=== PATIENT | female | born 1990 | race African-American/Black ===

== ENCOUNTER 2020-06-21 17:09 | Inpatient (IN) | payer MEDICAID ==
--- NOTE | 2020-06-21 20:31 | PCM.LDHP ---
L&D History of Present Illness - General Date of Service: 06/21/20 Admit Problem/Dx: Admission Diagnosis/Problem Admission Diagnosis/Problem 06/21/20 20:25 Yudelka is a 30 yo at 39+0 weeks gestation (PAPO 06/28/2020) that presents to L&D today for elective IOL. Patient seen in office 06/20/2020, RBAs of IOL including cytotec administration discussed in office, consents signed, verified vertex in office via TAUS and SVE. Reports adequate movement. Denies diana vaginal bleeding, LOF at this time. O pos, Ab screen neg, RI, GBS neg. EFW via Leopolds 6-7 lbs. H/O anemia and GERD, course otherwise unr emarkable. NKDA. Medications: PNV, omeprazole PRN. Patient has no other complaints or concerns at this time. 06/21/20 20:43 Source of Information: Patient History Limitations: Reports: No Limitations - History of Present Illness Improves with: Reports: None Worsens with: Reports: None Associated Symptoms: Reports: N - Related Data Allergies/Adverse Reactions: Allergies Allergy/AdvReac Type Severity Reaction Status Date / Time nalbuphine [From Nubain] Allergy Itching Verified 03/14/20 18:15 Home Medications: Home Meds Omeprazole 20 mg PO DAILY 03/14/20 [History] Pnv No.95/Ferrous Fum/Folic AC [ Tablet] 1 tab PO DAILY 03/14/20 [History] Past Medical History HEENT History: Reports: None Cardiovascular History: Reports: None Respiratory History: Reports: None Gastrointestinal History: Reports: GERD Genitourinary History: Reports: None 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) : 2 Para: 1 LMP (Approximate): Other OB/BYN History: 06/2009 Musculoskeletal History: Reports: None Neurological History: Reports: None Psychiatric History: Reports: None Endocrine/Metabolic History: Reports: None Hematologic History: Reports: None Immunologic History: Reports: None Oncologic (Cancer) History: Reports: None Dermatologic History: Reports: Condyloma - Infectious Disease History Infectious Disease History: Reports: None Social & Family History - Family History Family Medical History: No Pertinent Family History - Tobacco Use Tobacco Use Status *Q: Never Tobacco User - Caffeine Use Caffeine Use: Reports: None - Alcohol Use Alcohol Use History: No - Recreational Drug Use Recreational Drug Use: No - Sexual History Sexual History: Reports: None H&P Review of Systems - Review of Systems: Review Of Systems: Comprehensive ROS is negative, except as noted in HPI. General: Reports: No Symptoms HEENT: Reports: No Symptoms Pulmonary: Reports: No Symptoms Cardiovascular: Reports: No Symptoms Gastrointestinal: Reports: No Symptoms Genitourinary: Reports: No Symptoms Musculoskeletal: Reports: No Symptoms Skin: Reports: No Symptoms Psychiatric: Reports: No Symptoms Neurological: Reports: No Symptoms Hematologic/Lymphatic: Reports: No Symptoms Immunologic: Reports: No Symptoms L&D Exam - Exam Exam: See Below - Vital Signs Vital Signs: VSS, afebrile. See flowsheet - OB Specific Fundal Height In cm: 38 Contraction Duration (sec): 40-90 Contraction Frequency (min): occasional Contraction Intensity: Mild Movement: Active Heart Tones: Present Heart Tones per Min: 135 Heart Rate (FHR) Variability: Moderate (6-25 bmp) Presentation: Vertex (via handheld TAUS) - Lawrence Score Lawrence Score Cervix Position: Posterior Lawrence Score Consistency: Soft Lawrence Score Effacement: 31-50% Lawrence Score Dilation: 1-2 cm Lawrence Score 's Station: -3 Lawrence Score Total: 4 - Exam General: Alert, Oriented, Cooperative HEENT: Hearing Intact, Mucosa Moist & [place], Nares Patent, PERRLA Neck: Supple, Trachea Midline Lungs: Clear to Auscultation, Normal Respiratory Effort Cardiovascular: Regular Rate, Regular Rhythm GI/Abdominal Exam: Normal Bowel Sounds, Soft, Non-Tender, No Organomegaly, No Distention Rectal Exam: Deferred Genitourinary: Normal external exam, Normal bimanual exam, Enlarged uterus (Gravid uterus) Back Exam: Normal Inspection, Full Range of Motion Extremities: Normal Inspection, Normal Range of Motion, Non-Tender, No Pedal Edema, Normal Capillary Refill Skin: Warm, Dry, Intact Neurological: Cranial Nerves Intact, Reflexes Equal Bilateral Psychiatric: Alert, Normal Affect, Normal Mood - Problem List (1) Encounter for elective induction of labor SNOMED Code(s): 178928163 ICD Code: Z34.90 - ENCNTR FOR SUPRVSN OF NORMAL , UNSP, UNSP TRIMESTER Status: Acute Priority: High Current Visit: Yes (2) 39 weeks gestation of SNOMED Code(s): 82261165 ICD Code: Z3A.39 - 39 WEEKS GESTATION OF Status: Acute Priority: High Current Visit: Yes Problem List Initiated/Reviewed/Updated: Yes Assessment/Plan Comment:: Admit for observation for elective IOL in anticipation of of term viable . FHR Cat I. Spontaneous irregular contractions noted. RBAs/SEs of cytotec IOL discussed, patient confirms she desires elective IOL, reassess cervical dilation per orders. May ambulate or hydrotherapy once reactive NST is completed, reassess NSTs per orders. May receive epidural if desired >/= 4-5 cm[address] See new orders. Dr. Hussein notified and agreeable with POC.
[2020-06-21] MEDS ORDERED: Misoprostol 200 MCG Tab PO PRN (20:48)
[2020-06-21] MEDS ORDERED: Sodium Chloride 0.9% 10 ML SDV IV PRN (20:48)
[2020-06-21] MEDS ORDERED: Nalbuphine 10 MG/1 ML Vial IVPUSH PRN (20:48)
[2020-06-21] MEDS ORDERED: Lidocaine 1% 50 ML MDV INJECT PRN (20:48)
[2020-06-21] MEDS ORDERED: Water For Irrigation,Sterile 1,000 ML Container IRR PRN (20:48)
[2020-06-21] MEDS ORDERED: Methylergonovine 0.2 MG/1 ML Amp IM PRN (20:48)
[2020-06-21] MEDS ORDERED: Tranexamic Acid 1,000 MG in Sodium Chloride 0.9% 100 ML IV PRN (20:48)
[2020-06-21] MEDS ORDERED: Carboprost Tromethamine 250 MCG/1 ML Amp IM PRN (20:48)
[2020-06-21] MEDS ORDERED: Sodium Chloride 0.9% 10 ML Syringe FLUSH PRN (20:48)
[2020-06-21] MEDS ORDERED: Sodium Chloride 0.9% 2.5 ML Syringe FLUSH PRN (20:48)
[2020-06-21] MEDS ORDERED: Oxytocin/0.9 % Sodium Chloride 30 UNIT/500 ML BAG IV SCH ×2 (21:00→22:30)
[2020-06-21] MEDS ORDERED: Terbutaline 1 MG/ML SDV SUBCUT PRN (22:25)
[2020-06-21] MEDS: Misoprostol 25 MCG (1/4 of 100 MCG) Tab VAG PRN (23:16)
[2020-06-21] MEDS: Misoprostol 25 MCG (1/4 of 100 MCG) Tab PO PRN (23:17)
[2020-06-22] MEDS: Lactated Ringers 1,000 ML IV SCH ×3 (00:50→08:10)
[2020-06-22] MEDS: Misoprostol 25 MCG (1/4 of 100 MCG) Tab VAG PRN (07:20)
[2020-06-22] MEDS: Misoprostol 25 MCG (1/4 of 100 MCG) Tab PO PRN (07:23)
[2020-06-22] MEDS ORDERED: Butorphanol 1 MG/ML SDV IVPUSH PRN (12:19)
[2020-06-22] MEDS ORDERED: diphenhydrAMINE 50 MG/ML SDV IVPUSH ONE (13:02)
[2020-06-22] MEDS ORDERED: diphenhydrAMINE 50 MG/ML SDV ONE (13:04)
--- NOTE | 2020-06-22 14:42 | PCM.PNLD ---
Labor Progress Note - VS & Meds Vital Signs: VSS, afebrile. See flowsheet. Active Medications: Current Medications Butorphanol Tartrate (Stadol) 1 mg IVPUSH Q1H PRN PRN Reason: Pain Last Admin: 06/22/20 12:31 Dose: 1 mg Documented by: Carboprost Tromethamine (Hemabate Ds) 250 mcg IM ASDIRECTED PRN PRN Reason: Post Hemorrhage Lactated Ringer's (Ringers, Lactated) 1,000 mls @ 150 mls/hr IV ASDIRECTED ELLYN Last Infusion: 06/22/20 12:30 Dose: 150 mls/hr Documented by: Oxytocin/Sodium Chloride (Oxytocin 30 Unit/500 Ml-Ns) 30 unit in 500 mls @ 999 mls/hr IV TITRATE ELLYN Tranexamic Acid 1,000 mg/ (Sodium Chloride) 110 mls @ 660 mls/hr IV ONETIME PRN PRN Reason: Bleeding Oxytocin/Sodium Chloride (Oxytocin 30 Unit/500 Ml-Ns) 30 unit in 500 mls @ 2 mls/hr IV TITRATE ELLYN; Protocol Lidocaine HCl (Xylocaine 1%) 50 ml INJECT ONETIME PRN PRN Reason: Laceration repair Methylergonovine Maleate (Methergine) 0.2 mg IM ASDIRECTED PRN PRN Reason: Post Hemorrhage Misoprostol (Cytotec) 200 mcg PO ONETIME PRN PRN Reason: Post Hemorrhage Misoprostol (Cytotec) 25 mcg VAG Q4H PRN PRN Reason: Cervical Ripening Last Admin: 06/22/20 07:20 Dose: 25 mcg Documented by: Misoprostol (Cytotec) 25 mcg PO Q4H PRN PRN Reason: Cervical Ripening Last Admin: 06/22/20 07:23 Dose: 25 mcg Documented by: Sodium Chloride (Saline Flush) 10 ml FLUSH ASDIRECTED PRN PRN Reason: Keep Vein Open Sodium Chloride (Saline Flush) 2.5 ml FLUSH ASDIRECTED PRN PRN Reason: Keep Vein Open Sodium Chloride (Normal Saline) 10 ml IV ASDIRECTED PRN PRN Reason: IV Use Sterile Water (Sterile Water For Irrigation) 1,000 ml IRR ASDIRECTED PRN PRN Reason: delivery Terbutaline Sulfate (Brethine) 0.25 mg SUBCUT ASDIRECTED PRN PRN Reason: Tacysystole Discontinued Medications Diphenhydramine HCl (Benadryl) 25 mg IVPUSH ONETIME ONE Stop: 06/22/20 13:03 Last Admin: 06/22/20 13:06 Dose: 25 mg Documented by: Diphenhydramine HCl (Benadryl) Confirm Administered Dose 50 mg .ROUTE .STK-MED ONE Stop: 06/22/20 13:05 Last Admin: 06/22/20 13:11 Dose: Not Given Documented by: Nalbuphine HCl (Nubain) 10 mg IVPUSH Q1H PRN PRN Reason: Pain (severe 7-10) - Uterine Contractions Uterine Monitoring Mode: External [place] Contraction Frequency (min): 1-3 Contraction Duration (sec): 60-110 Contraction Intensity: Strong Uterine Resting Tone: Soft - Monitoring Monitor Mode: External Ultrasound Heart Rate (FHR) Baseline: 130 Heart Rate (FHR) Variability: Moderate (6-25 bmp) Accelerations: Present, 15x15 Decelerations: None Strip Review: Category I - Vaginal Exam Dilation (cm): 6 Effacement (Percent): 90 Station: -1 Cervical Position: Midposition Sterile Vaginal Exam Performed By: Alethea Schmidt - Labor Progress (Free Text) Labor Progress: Yudelka is a 30 yo at 39+0 weeks gestation (PAPO 06/28/2020) that presents to L&D today for elective IOL. Cytotec cervical ripening completed, Dose #2 administered ~0720; spontaneous onset of painful contractions with cervical change thereafter. IV stadol given with benedryl for pain, declines epidural at this time. Reports adequate movement. Denies diana vaginal bleeding, LOF . AROM completed, moderate clear non-odorous fluid. SVE /-1, vertex. NST Cat I. Continue with elective IOL POC in anticipation of of viable, term .
[2020-06-22] MEDS ORDERED: fentaNYL 100 MCG/2 ML SDV ONE (15:18)
[2020-06-22] MEDS ORDERED: Ropivacaine HCl/PF 100 ML ONE (15:18)
--- NOTE | 2020-06-22 15:39 | PCM.PREANE ---
Preanesthetic Assessment - Anesthesia/Transfusion/Family Hx Anesthesia History: No Prior Anesthesia Family History of Anesthesia Reaction: No Transfusion History: No Prior Transfusion(s) Type of Transfusion Reactions: Reports: Unknown - Physical Assessment NPO Status Date: 06/22/20 NPO Status Time: 11:00 Height: 1.68 m Weight: 79.379 kg - Lab Values: Laboratory Last Values WBC 12.48 K/uL (4.0-11.0) H 06/21/20 21:55 RBC 3.65 M/uL (4.30-5.90) L 06/21/20 21:55 Hgb 10.2 g/dL (12.0-16.0) L 06/21/20 21:55 Hct 32.3 % (36.0-46.0) L 06/21/20 21:55 MCV 88.5 fL (80.0-98.0) 06/21/20 21:55 MCH 27.9 pg (27.0-32.0) 06/21/20 21:55 MCHC 31.6 g/dL (31.0-37.0) 06/21/20 21:55 RDW Std Deviation 49.8 fl (28.0-62.0) 06/21/20 21:55 RDW Coeff of Monty 16 % (11.0-15.0) H 06/21/20 21:55 Plt Count 267 K/uL (150-400) 06/21/20 21:55 MPV 10.00 fL (7.40-12.00) 06/21/20 21:55 Nucleated RBC % 0.0 /100WBC 06/21/20 21:55 Nucleated RBCs # 0 K/uL 06/21/20 21:55 SARS-CoV-2 RNA (HEIDE) NEGATIVE (NEGATIVE) 06/21/20 20:23 Blood Type O POSITIVE 06/21/20 21:55 Antibody Screen NEGATIVE 06/21/20 21:55 - Allergies Allergies/Adverse Reactions: Allergies Allergy/AdvReac Type Severity Reaction Status Date / Time nalbuphine [From Nubain] Allergy Itching Verified 03/14/20 18:15 - Acknowledgements Anesthesia Type Planned: Epidural Pt an Appropriate Candidate for the Planned Anesthesia: Yes Alternatives and Risks of Anesthesia Discussed w Pt/Guardian: Yes Pt/Guardian Understands and Agrees with Anesthesia Plan: Yes PreAnesthesia Questionnaire HEENT History: Reports: None Cardiovascular History: Reports: None Respiratory History: Reports: None Gastrointestinal History: Reports: GERD Genitourinary History: Reports: None 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: , 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) Other OB/BYN History: 06/2009 Musculoskeletal History: Reports: None Neurological History: Reports: None Psychiatric History: Reports: None Endocrine/Metabolic History: Reports: None Hematologic History: Reports: None Immunologic History: Reports: None Oncologic (Cancer) History: Reports: None Dermatologic History: Reports: Condyloma - Infectious Disease History Infectious Disease History: Reports: None - Past Surgical History HEENT Surgical History: Reports: None Cardiovascular Surgical History: Reports: None GI Surgical History: Reports: None Female Surgical History: Reports: None Endocrine Surgical History: Reports: None Neurological Surgical History: Reports: None Musculoskeletal Surgical History: Reports: None Oncologic Surgical History: Reports: None Dermatological Surgical History: Reports: None - SUBSTANCE USE Tobacco Use Status *Q: Never Tobacco User Second Hand Smoke Exposure: No Recreational Drug Use History: No - HOME MEDS Home Medications: Home Meds Omeprazole 20 mg PO DAILY 03/14/20 [History] Pnv No.95/Ferrous Fum/Folic AC [ Tablet] 1 tab PO DAILY 03/14/20 [History] - CURRENT (IN HOUSE) MEDS Current Meds: Current Medications Butorphanol Tartrate (Stadol) 1 mg IVPUSH Q1H PRN PRN Reason: Pain Last Admin: 06/22/20 12:31 Dose: 1 mg Documented by: Carboprost Tromethamine (Hemabate Ds) 250 mcg IM ASDIRECTED PRN PRN Reason: Post Hemorrhage Lactated Ringer's (Ringers, Lactated) 1,000 mls @ 150 mls/hr IV ASDIRECTED ELLYN Last Infusion: 06/22/20 12:30 Dose: 150 mls/hr Documented by: Oxytocin/Sodium Chloride (Oxytocin 30 Unit/500 Ml-Ns) 30 unit in 500 mls @ 999 mls/hr IV TITRATE ELLYN Tranexamic Acid 1,000 mg/ (Sodium Chloride) 110 mls @ 660 mls/hr IV ONETIME PRN PRN Reason: Bleeding Oxytocin/Sodium Chloride (Oxytocin 30 Unit/500 Ml-Ns) 30 unit in 500 mls @ 2 mls/hr IV TITRATE ELLYN; Protocol Lidocaine HCl (Xylocaine 1%) 50 ml INJECT ONETIME PRN PRN Reason: Laceration repair Methylergonovine Maleate (Methergine) 0.2 mg IM ASDIRECTED PRN PRN Reason: Post Hemorrhage Misoprostol (Cytotec) 200 mcg PO ONETIME PRN PRN Reason: Post Hemorrhage Misoprostol (Cytotec) 25 mcg VAG Q4H PRN PRN Reason: Cervical Ripening Last Admin: 06/22/20 07:20 Dose: 25 mcg Documented by: Misoprostol (Cytotec) 25 mcg PO Q4H PRN PRN Reason: Cervical Ripening Last Admin: 06/22/20 07:23 Dose: 25 mcg Documented by: Sodium Chloride (Saline Flush) 10 ml FLUSH ASDIRECTED PRN PRN Reason: Keep Vein Open Sodium Chloride (Saline Flush) 2.5 ml FLUSH ASDIRECTED PRN PRN Reason: Keep Vein Open Sodium Chloride (Normal Saline) 10 ml IV ASDIRECTED PRN PRN Reason: IV Use Sterile Water (Sterile Water For Irrigation) 1,000 ml IRR ASDIRECTED PRN PRN Reason: delivery Terbutaline Sulfate (Brethine) 0.25 mg SUBCUT ASDIRECTED PRN PRN Reason: Tacysystole Discontinued Medications Diphenhydramine HCl (Benadryl) 25 mg IVPUSH ONETIME ONE Stop: 06/22/20 13:03 Last Admin: 06/22/20 13:06 Dose: 25 mg Documented by: Diphenhydramine HCl (Benadryl) Confirm Administered Dose 50 mg .ROUTE .STK-MED ONE Stop: 06/22/20 13:05 Last Admin: 06/22/20 13:11 Dose: Not Given Documented by: Fentanyl (Sublimaze) Confirm Administered Dose 100 mcg .ROUTE .STK-MED ONE Stop: 06/22/20 15:19 Ropivacaine (Naropin 0.2%) Confirm Administered Dose 100 mls @ as directed .ROUTE .STK-MED ONE Stop: 06/22/20 15:19 Nalbuphine HCl (Nubain) 10 mg IVPUSH Q1H PRN PRN Reason: Pain (severe 7-10)
--- NOTE | 2020-06-22 15:42 | PCM.PRNOTE ---
- Free Text/Narrative Note: Anes Note Patietn requests epidural for L&D. Sitting position, level L3-L4 mildline approach. Sterile technique. Chloraprep scrub to lumbar area. Sterile fenestrated drape applied. Epidural spaces easily ahcieved single attempt with ease using DENISE technique. DENISE at 3 cm. Cath threaded 5 cm wtih ease. Cath secured at skin using sterile clear adhesive dressing. Test 1525 3 cc 1.5% lido with epi negative. 1538 Load 10 cc 0.2% ropiviciane with 1 mcg cc fentayl in slow divided doses. 1544 Pumps started with 90 cc same solution. Rate is 8 cc hr with 6 cc q 20 min prn bolus. Hai well. Time with patient [id number] Raz Lima CRNA
--- NOTE | 2020-06-22 16:52 | PCM.DEL ---
L & D Note - General Info Date of Service: 06/22/20 Mother's Due Date: 06/28/20 - Delivery Note Labor: Spontaneous, Augmented by ARM, Augmented by Oxytocin Cervical Ripening Method: Misoprostil Delivery Outcome: Livebirth Delivery Method: Spontaneous Vaginal Delivery-Single Infant Delivery Mode: Spontaneous Presentation: Vertex (OA) Nuchal Cord: Present (OA with body nuchal left shoulder, reduced after .) Anesthesia Type: Epidural Amniotic Fluid Description: Clear Episiotomy Type: None Laceration: None Placenta: Intact, Spontaneous Cord: 3 Vessels Estimated Blood Loss: 500 : Suctioned, Stimulated, Warmed, [place] Used Score 1 min: 6 Score 5 min: 9 Second Stage Interventions: Reports: Encouragement Given, Pushing Effectively, Pushing, Stirrups/Leg Supports Delivery Comments (Free Text/Narrative):: Yudelka is a 30 yo S/P of term, viable NBF at 39+1 weeks gestation (PAPO 06/28/2020) following elective IOL. O pos, Ab screen neg, RI, GBS neg. RT called to bedside d/t recurrent decelerations prior to . Pain controlled well with BLE epidural analgesia, pushing effectively with encouragement. head delivered OA with body closely following with next push, body nuchal over left shoulder, reduced upon delivery. NBF placed to maternal abdomen, warmed, dried, stimulated, bulb suctioned. Weak cries noted, umbilical cord clamped x2 ~35-40 sec, cut by FOB. NBF brought to warmer for assessment. Pitocin bolus commenced for active third stage management. Placenta delivered ~8 minutes S/P NBF, intact with trailing membranes, [place], 3VC. Perineum intact. Uterus firm, U-2. Scant to small rubra lochia, no clots. Apgars 6/9. weight 7 lb 14 oz. EBL ~500. Patient resting comfortably in bed, VSS and afebrile. Induction Criteria - Lawrence Score Lawrence Score Dilation: 1-2 cm Lawrence Score Effacement: 40-50% Lawrence Score 's Station: -3 Lawrence Score Consistency: Soft Lawrence Score Cervix Position: Posterior Lawrence Score Total: 4 Lawrence Score Presenting Part: Reports: Cephalic - Induction Gestational Age >/= 39 wks: Yes Estimated Pelvis: Reports: Adequate - Augmentation Estimated Pelvis: Reports: Adequate Weight Estimated:: Reports: AGA - General Info Date of Service: 06/22/20 Admission Dx/Problem (Free Text): Admission Diagnosis/Problem Admission Diagnosis/Problem 06/21/20 20:25 Yduelka is a 30 yo at 39+0 weeks gestation (PAPO 06/28/2020) that presents to L&D today for elective IOL. Patient seen in office 06/20/2020, RBAs of IOL including cytotec administration discussed in office, consents signed, verified vertex in office via TAUS and SVE. Reports adequate movement. Denies diana vaginal bleeding, LOF at this time. O pos, Ab screen neg, RI, GBS neg. EFW via Leopolds 6-7 lbs. H/O anemia and GERD, course otherwise unremarkable. NKDA. Medications: PNV, omeprazole PRN. Patient has no other complaints or concerns at this time. 06/21/20 20:43 Functional Status: Reports: Pain Controlled - Review of Systems General: Reports: No Symptoms HEENT: Reports: No Symptoms Pulmonary: Reports: No Symptoms Cardiovascular: Reports: No Symptoms Gastrointestinal: Reports: No Symptoms Genitourinary: Reports: No Symptoms Musculoskeletal: Reports: No Symptoms Skin: Reports: No Symptoms Neurological: Reports: No Symptoms Psychiatric: Reports: No Symptoms - Patient Data Vitals - Most Recent: VSS, afebrile. See flowsheet. Weight - Most Recent: 175 lb Lab Results Last 24 Hours: Laboratory Results - last 24 hr 06/21/20 06/21/20 06/21/20 Range/Units 20:23 21:55 21:55 WBC 12.48 H (4.0-11.0) K/uL RBC 3.65 L (4.30-5.90) M/uL Hgb 10.2 L (12.0-16.0) g/dL Hct 32.3 L (36.0-46.0) % MCV 88.5 (80.0-98.0) fL MCH 27.9 (27.0-32.0) pg MCHC 31.6 (31.0-37.0) g/dL RDW Std Deviation 49.8 (28.0-62.0) fl RDW Coeff of Monty 16 H (11.0-15.0) % Plt Count 267 (150-400) K/uL MPV 10.00 (7.40-12.00) fL Nucleated RBC % 0.0 /100WBC Nucleated RBCs # 0 K/uL SARS-CoV-2 RNA (HEIDE) NEGATIVE (NEGATIVE) Blood Type O POSITIVE Antibody Screen NEGATIVE Med Orders - Current: Current Medications Butorphanol Tartrate (Stadol) 1 mg IVPUSH Q1H PRN PRN Reason: Pain Last Admin: 06/22/20 12:31 Dose: 1 mg Documented by: Carboprost Tromethamine (Hemabate Ds) 250 mcg IM ASDIRECTED PRN PRN Reason: Post Hemorrhage Lactated Ringer's (Ringers, Lactated) 1,000 mls @ 150 mls/hr IV ASDIRECTED ELLYN Last Infusion: 06/22/20 12:30 Dose: 150 mls/hr Documented by: Oxytocin/Sodium Chloride (Oxytocin 30 Unit/500 Ml-Ns) 30 unit in 500 mls @ 999 mls/hr IV TITRATE ELLYN Tranexamic Acid 1,000 mg/ (Sodium Chloride) 110 mls @ 660 mls/hr IV ONETIME PRN PRN Reason: Bleeding Oxytocin/Sodium Chloride (Oxytocin 30 Unit/500 Ml-Ns) 30 unit in 500 mls @ 2 mls/hr IV TITRATE ELLYN; Protocol Last Titration: 06/22/20 16:15 Dose: 4 munits/min, 4 mls/hr Documented by: Lidocaine HCl (Xylocaine 1%) 50 ml INJECT ONETIME PRN PRN Reason: Laceration repair Methylergonovine Maleate (Methergine) 0.2 mg IM ASDIRECTED PRN PRN Reason: Post Hemorrhage Misoprostol (Cytotec) 200 mcg PO ONETIME PRN PRN Reason: Post Hemorrhage Misoprostol (Cytotec) 25 mcg VAG Q4H PRN PRN Reason: Cervical Ripening Last Admin: 06/22/20 07:20 Dose: 25 mcg Documented by: Misoprostol (Cytotec) 25 mcg PO Q4H PRN PRN Reason: Cervical Ripening Last Admin: 06/22/20 07:23 Dose: 25 mcg Documented by: Sodium Chloride (Saline Flush) 10 ml FLUSH ASDIRECTED PRN PRN Reason: Keep Vein Open Sodium Chloride (Saline Flush) 2.5 ml FLUSH ASDIRECTED PRN PRN Reason: Keep Vein Open Sodium Chloride (Normal Saline) 10 ml IV ASDIRECTED PRN PRN Reason: IV Use Sterile Water (Sterile Water For Irrigation) 1,000 ml IRR ASDIRECTED PRN PRN Reason: delivery Terbutaline Sulfate (Brethine) 0.25 mg SUBCUT ASDIRECTED PRN PRN Reason: Tacysystole Discontinued Medications Diphenhydramine HCl (Benadryl) 25 mg IVPUSH ONETIME ONE Stop: 06/22/20 13:03 Last Admin: 06/22/20 13:06 Dose: 25 mg Documented by: Diphenhydramine HCl (Benadryl) Confirm Administered Dose 50 mg .ROUTE .STK-MED ONE Stop: 06/22/20 13:05 Last Admin: 06/22/20 13:11 Dose: Not Given Documented by: Fentanyl (Sublimaze) Confirm Administered Dose 100 mcg .ROUTE .STK-MED ONE Stop: 06/22/20 15:19 Ropivacaine (Naropin 0.2%) Confirm Administered Dose 100 mls @ as directed .ROUTE .STK-MED ONE Stop: 06/22/20 15:19 Nalbuphine HCl (Nubain) 10 mg IVPUSH Q1H PRN PRN Reason: Pain (severe 7-10) - Exam General: Alert, Oriented, Cooperative, No Acute Distress HEENT: Pupils Equal, Mucous Membr. Moist/[place] Neck: Supple Lungs: Clear to Auscultation, Normal Respiratory Effort Cardiovascular: Regular Rate, Regular Rhythm GI/Abdominal Exam: Normal Bowel Sounds, Soft, Non-Tender, No Organomegaly, No Distention (Female) Exam: Normal External Exam, Enlarged Uterus ( uterus, firm U-2), Vaginal Bleeding (Small rubra lochia, no clots.) Back Exam: Normal Inspection, Full Range of Motion Extremities: Normal Inspection, Normal Range of Motion, Non-Tender, No Pedal Edema, Normal Capillary Refill Skin: Warm, Dry, Intact Neurological: No New Focal Deficit (BLE epidural analgesia) Psy/Mental Status: Alert, Normal Affect, Normal Mood - Problem List & Annotations (1) (spontaneous vaginal delivery) SNOMED Code(s): 442074515 Code(s): O80 - ENCOUNTER FOR FULL-TERM UNCOMPLICATED DELIVERY Status: Acute Priority: High Current Visit: Yes - Problem List Review Problem List Initiated/Reviewed/Updated: Yes - My Orders Last 24 Hours: My Active Orders 06/21/20 20:48 May Shower [RC] ASDIRECTED Notify Provider [RC] PRN Up ad Lenora [RC] ASDIRECTED Vital Signs [RC] PER UNIT ROUTINE Carboprost Tromethamine [Hemabate DS] 250 mcg IM ASDIRECTED PRN Lidocaine 1% [Xylocaine 1%] 50 ml INJECT ONETIME PRN Methylergonovine [Methergine] 0.2 mg IM ASDIRECTED PRN Sodium Chloride 0.9% [Normal Saline] 10 ml IV ASDIRECTED PRN Sodium Chloride 0.9% [Saline Flush] 10 ml FLUSH ASDIRECTED PRN Sodium Chloride 0.9% [Saline Flush] 2.5 ml FLUSH ASDIRECTED PRN Tranexamic Acid [Cyklokapron] 1,000 mg Sodium Chloride 0.9% [Normal Saline] 100 ml IV ONETIME Water For Irrigation,Sterile [Sterile Water for Irrigation] 1,000 ml IRR ASDIRECTED PRN miSOPROStoL [Cytotec] 200 mcg PO ONETIME PRN Scalp Electrode [WOMSER] Per Unit Routine Peripheral IV Insertion Adult [OM.PC] Routine Resuscitation Status Routine 06/21/20 21:00 Lactated Ringers [Ringers, Lactated] 1,000 ml IV ASDIRECTED Oxytocin/0.9 % Sodium Chloride [Oxytocin 30 Unit/500 ML-NS] 30 unit in 500 ml IV TITRATE 06/21/20 21:55 RPR (SYPHILIS SERO) W/ RFLX [REF] Routine 06/21/20 22:25 Bedrest Bathroom Privileges [RC] ASDIRECTED Notify Provider [RC] PRN Notify Provider [RC] PRN Notify Provider [RC] STAT Oxygen Therapy [RC] ASDIRECTED Vital Signs [RC] PER UNIT ROUTINE Terbutaline [Brethine] 0.25 mg SUBCUT ASDIRECTED PRN miSOPROStoL [Cytotec] 25 mcg PO Q4H PRN miSOPROStoL [Cytotec] 25 mcg VAG Q4H PRN 06/21/20 22:30 Oxytocin/0.9 % Sodium Chloride [Oxytocin 30 Unit/500 ML-NS] 30 unit in 500 ml IV TITRATE Medication Administration Instruction [OM.PC] Q3H 06/22/20 12:19 Butorphanol [Stadol] 1 mg IVPUSH Q1H PRN - Plan Plan:: Admit to inpatient unit S/P of term, viable NBF. D/C epidural analgesia now, may ambulate with assistance in 2-4 hours. If unable to void within 6 hours, plan to bladder scan and I/O cath and notify provider. May resume regular diet. support as needed and if desired. Hemoglobin 10.2 prior to delivery; plan to start 150 mg ferrous sulfate PO daily now. H/H in am or sooner if symptomatic. Stool softeners and laxatives as needed. See new orders. Dr. Hussein agreeable with POC.
[2020-06-22] MEDS ORDERED: Ibuprofen 800 MG Tab PO PRN (17:09)
[2020-06-22] MEDS ORDERED: oxyCODONE 5 MG Tab PO PRN (17:09)
[2020-06-22] MEDS ORDERED: Benzocaine/Menthol 20%-0.5% Spray 78 GM Cannister TOP PRN (17:09)
[2020-06-22] MEDS ORDERED: Acetaminophen 500 MG Tab PO PRN (17:09)
[2020-06-22] MEDS ORDERED: Witch Hazel Medicated Pads 40/Jar TOP PRN (17:09)
[2020-06-22] MEDS ORDERED: Ibuprofen 400 MG Tab PO PRN (17:09)
[2020-06-22] MEDS ORDERED: Lanolin 100% Cream 7 GM Tube TOP PRN (17:09)
[2020-06-22] MEDS ORDERED: Bisacodyl 10 MG Supp RECTAL PRN (17:09)
[2020-06-22] MEDS: Docusate Sodium 100 MG Cap PO SCH (20:53)
[2020-06-22] MEDS: Iron Polysaccharides Complex 150 MG Cap PO SCH (20:53)
--- NOTE | 2020-06-23 06:37 | PCM48HPAN ---
Post Anesthesia Note - EVALUATION WITHIN 48HRS OF ANESTHETIC Vital Signs in Normal Range: Yes Patient Participated in Evaluation: Yes Respiratory Function Stable: Yes Airway Patent: Yes Cardiovascular Function Stable: Yes Hydration Status Stable: Yes Pain Control Satisfactory: Yes Nausea and Vomiting Control Satisfactory: Yes Mental Status Recovered: Yes Vital Signs: Last Vital Signs Temp 36.6 C 06/23/20 03:06 Pulse Resp 18 06/23/20 03:06 BP 123/86 06/23/20 03:06 Pulse Ox 97 06/23/20 03:06
[2020-06-23] MEDS: Acetaminophen 500 MG Tab PO PRN ×2 (07:52→17:19)
[2020-06-23] MEDS: Iron Polysaccharides Complex 150 MG Cap PO SCH ×2 (07:53→08:00)
[2020-06-23] MEDS: Docusate Sodium 100 MG Cap PO SCH ×2 (07:53→08:00)
--- NOTE | 2020-06-23 11:32 | PCM.DCSUM1 ---
Discharge Summary - Hospital Course Free Text/Narrative:: Yudelka is a 30 yo PPD1 S/P uncomplicated to term NBF. O pos, Ab screen neg, RI, GBS neg. Patient has no complaints or concerns at this time. Patient is exclusively bottle feeding well, resting comfortably in bed with in bassinet. Patient reports she is eating, voiding, ambulating independently and without difficulty. Patient denies any problems or concerns at this time except mild-moderate intermittent uterine cramping relieved with Tylenol and Ibuprofen. Patient reports moderate to large vaginal bleeding with no clots. Patient verbalizes her readiness to be discharged home today. Diagnosis: Stroke: No - Discharge Data Discharge Date: 06/23/20 Discharge Disposition: Home, Self-Care 01 Condition: Good - Referral to Home Health Primary Care Physician: PCP None - Discharge Diagnosis/Problem(s) (1) (spontaneous vaginal delivery) SNOMED Code(s): 135334041 ICD Code: O80 - ENCOUNTER FOR FULL-TERM UNCOMPLICATED DELIVERY Status: Acute Priority: High Current Visit: Yes - Patient Instructions Diet: Usual Diet as Tolerated, Regular Diet as Tolerated, Drink 8-10+ Glasses/Day Activity: As Tolerated, No Strenuous Activities, Rest and Relax Today Driving: May Drive Today Showering/Bathing: May Shower Showering/Bathing, Other: May sitz bath for perineal comfort. Notify Provider of: Fever, Increased Pain, Swelling and Redness, Drainage, Nausea and/or Vomiting - Discharge Plan *PRESCRIPTION DRUG MONITORING PROGRAM REVIEWED*: No *COPY OF PRESCRIPTION DRUG MONITORING REPORT IN PATIENT TATIANA: No Prescriptions/Med Rec: Docusate Sodium [Colace] 100 mg PO BID #60 cap Iron Polysaccharides Complex [Ferrex 150] 150 mg PO DAILY #30 cap Ibuprofen [Motrin] 800 mg PO Q8H PRN #90 tablet PRN Reason: Pain Home Medications: Home Meds Pnv No.95/Ferrous Fum/Folic AC [ Tablet] 1 tab PO DAILY 03/14/20 [History] Docusate Sodium [Colace] 100 mg PO BID #60 cap 06/23/20 [Rx] Ibuprofen [Motrin] 800 mg PO Q8H PRN #90 tablet 06/23/20 [Rx] Iron Polysaccharides Complex [Ferrex 150] 150 mg PO DAILY #30 cap 06/23/20 [Rx] Oxygen Therapy Mode: Room Air - Discharge Summary/Plan Comment DC Time >30 min.: Yes Discharge Summary/Plan Comment: Hemodynamically stable, afebrile. Hemoglobin 9.6, continue ferrous sulfat 150 mg daily x 12 weeks; F/U as needed. OK to discharge home today. Warning S/Ss, when to call for help discussed. Plan to RTO in 6 weeks for visit, or sooner if problems arise. - General Info Date of Service: 06/23/20 Admission Dx/Problem (Free Text: Admission Diagnosis/Problem Admission Diagnosis/Problem 06/21/20 20:25 Yudelka is a 30 yo at 39+0 weeks gestation (PAPO 06/28/2020) that presents to L&D today for elective IOL. Patient seen in office 06/20/2020, RBAs of IOL including cytotec administration discussed in office, consents signed, verified vertex in office via TAUS and SVE. Reports adequate movement. Denies diana vaginal bleeding, LOF at this time. O pos, Ab screen neg, RI, GBS neg. EFW via [place] 6-7 lbs. H/O anemia and GERD, course otherwise unremarkable. NKDA. Medications: PNV, omeprazole PRN. Patient has no other complaints or concerns at this time. 06/21/20 20:43 Functional Status: Reports: Pain Controlled, Tolerating Diet, Ambulating, Urinating - Review of Systems General: Reports: No Symptoms HEENT: Reports: No Symptoms Pulmonary: Reports: No Symptoms Cardiovascular: Reports: No Symptoms Gastrointestinal: Reports: No Symptoms Genitourinary: Reports: No Symptoms Musculoskeletal: Reports: No Symptoms Skin: Reports: No Symptoms Neurological: Reports: No Symptoms Psychiatric: Reports: No Symptoms - Patient Data Vitals - Most Recent: Last Vital Signs Temp 98.2 F 06/23/20 07:30 Pulse Resp 16 06/23/20 07:30 BP 117/76 06/23/20 07:30 Pulse Ox 99 06/23/20 07:30 Weight - Most Recent: 175 lb Lab Results - Last 24 hrs: Laboratory Results - last 24 hr 06/23/20 Range/Units 06:10 Hgb 9.6 L (12.0-16.0) g/dL Hct 30.0 L (36.0-46.0) % Med Orders - Current: Current Medications Acetaminophen (Tylenol Extra Strength) 500 mg PO Q4H PRN PRN Reason: Pain Acetaminophen (Tylenol Extra Strength) 1,000 mg PO Q4H PRN PRN Reason: Pain Last Admin: 06/23/20 07:52 Dose: 1,000 mg Documented by: Benzocaine/Menthol (Dermoplast Pain Relief 20%-0.5% Presto) 78 gm TOP ASDIRECTED PRN PRN Reason: Perineal Comfort Measure Last Admin: 06/22/20 20:53 Dose: 1 spray Documented by: Bisacodyl (Dulcolax) 10 mg RECTAL ONETIME PRN PRN Reason: Constipation Docusate Sodium (Colace) 100 mg PO BID [facility] Last Admin: 06/23/20 08:00 Dose: Not Given Documented by: Emollient Ointment (Lansinoh Hpa) 0 gm TOP ASDIRECTED PRN PRN Reason: Sore Nipples Ibuprofen (Motrin) 400 mg PO Q4H PRN PRN Reason: Pain Ibuprofen (Motrin) 800 mg PO Q6H PRN PRN Reason: Pain Last Admin: 06/22/20 20:53 Dose: 800 mg Documented by: Oxycodone HCl (Oxycodone) 5 mg PO Q2H PRN PRN Reason: Pain Polysaccharide Iron Complex (Ferrex 150) 150 mg PO BID [facility] Last Admin: 06/23/20 08:00 Dose: Not Given Documented by: Eileen Kimckai) 1 pad TOP ASDIRECTED PRN PRN Reason: comfort care Discontinued Medications Butorphanol Tartrate (Stadol) 1 mg IVPUSH Q1H PRN PRN Reason: Pain Last Admin: 06/22/20 12:31 Dose: 1 mg Documented by: Carboprost Tromethamine (Hemabate Ds) 250 mcg IM ASDIRECTED PRN PRN Reason: Post Hemorrhage Diphenhydramine HCl (Benadryl) 25 mg IVPUSH ONETIME ONE Stop: 06/22/20 13:03 Last Admin: 06/22/20 13:06 Dose: 25 mg Documented by: Diphenhydramine HCl (Benadryl) Confirm Administered Dose 50 mg .ROUTE .STK-MED ONE Stop: 06/22/20 13:05 Last Admin: 06/22/20 13:11 Dose: Not Given Documented by: Fentanyl (Sublimaze) Confirm Administered Dose 100 mcg .ROUTE .[employer] ONE Stop: 06/22/20 15:19 Last Admin: 06/22/20 18:29 Dose: Not Given Documented by: Lactated Ringer's (Ringers, Lactated) 1,000 mls @ 150 mls/hr IV ASDIRECTED ELLYN Last Infusion: 06/22/20 12:30 Dose: 150 mls/hr Documented by: Oxytocin/Sodium Chloride (Oxytocin 30 Unit/500 Ml-Ns) 30 unit in 500 mls @ 999 mls/hr IV TITRATE ELLYN Tranexamic Acid 1,000 mg/ (Sodium Chloride) 110 mls @ 660 mls/hr IV ONETIME PRN PRN Reason: Bleeding Oxytocin/Sodium Chloride (Oxytocin 30 Unit/500 Ml-Ns) 30 unit in 500 mls @ 2 mls/hr IV TITRATE ELLYN; Protocol Last Titration: 06/22/20 16:38 Dose: 999 munits/min, 999 mls/hr Documented by: Ropivacaine (Naropin 0.2%) Confirm Administered Dose 100 mls @ as directed .ROUTE .[employer] ONE Stop: 06/22/20 15:19 Last Admin: 06/22/20 18:29 Dose: Not Given Documented by: Lidocaine HCl (Xylocaine 1%) 50 ml INJECT ONETIME PRN PRN Reason: Laceration repair Methylergonovine Maleate (Methergine) 0.2 mg IM ASDIRECTED PRN PRN Reason: Post Hemorrhage Last Admin: 06/22/20 17:12 Dose: 0.2 mg Documented by: Misoprostol (Cytotec) 200 mcg PO ONETIME PRN PRN Reason: Post Hemorrhage Misoprostol (Cytotec) 25 mcg VAG Q4H PRN PRN Reason: Cervical Ripening Last Admin: 06/22/20 07:20 Dose: 25 mcg Documented by: Misoprostol (Cytotec) 25 mcg PO Q4H PRN PRN Reason: Cervical Ripening Last Admin: 06/22/20 07:23 Dose: 25 mcg Documented by: Nalbuphine HCl (Nubain) 10 mg IVPUSH Q1H PRN PRN Reason: Pain (severe 7-10) Sodium Chloride (Saline Flush) 10 ml FLUSH ASDIRECTED PRN PRN Reason: Keep Vein Open Sodium Chloride (Saline Flush) 2.5 ml FLUSH ASDIRECTED PRN PRN Reason: Keep Vein Open Sodium Chloride (Normal Saline) 10 ml IV ASDIRECTED PRN PRN Reason: IV Use Sterile Water (Sterile Water For Irrigation) 1,000 ml IRR ASDIRECTED PRN PRN Reason: delivery Terbutaline Sulfate (Brethine) 0.25 mg SUBCUT ASDIRECTED PRN PRN Reason: Tacysystole - Exam General: Reports: Alert, Oriented, Cooperative, No Acute Distress HEENT: Reports: Pupils Equal, Mucous Membr. Moist/[place] Neck: Reports: Supple Lungs: Reports: Clear to Auscultation, Normal Respiratory Effort Cardiovascular: Reports: Regular Rate, Regular Rhythm GI/Abdominal Exam: Normal Bowel Sounds, Soft, Non-Tender, No Organomegaly, No Distention (Female) Exam: Enlarged Uterus ( uterus, firm U-1), Vaginal Bleeding (Large rubra lochia, no clots.) Rectal (Female) Exam: Deferred Back Exam: Reports: Normal Inspection, Full Range of Motion Extremities: Normal Inspection, Normal Range of Motion, Non-Tender, No Pedal Edema, Normal Capillary Refill Skin: Reports: Warm, Dry, Intact Neurological: Reports: No New Focal Deficit Psy/Mental Status: Reports: Alert, Normal Affect, Normal Mood
[2020-06-23] MEDS ORDERED: Ondansetron 4 MG Tab PO ONE (17:30)
== END 2020-06-23 19:00 | disposition home or self-care (01) | DRG 807 ==
LOC: MW.OB 17:09 → OBSVTOIN 06-22 17:09 → MW.OB 06-22 19:31
PROVIDERS: ADMIT Obstetrics & Gynecology; ATTEND Obstetrics & Gynecology
PROC: 10E0XZZ Delivery of Products of Conception, External Approach (ICD-10-PCS; principal; 2020-06-22)
PROC: 10907ZC Drainage of Amniotic Fluid, Therapeutic from Products of Conception, Via Natural or Artificial Opening (ICD-10-PCS; 2020-06-22)
PROC: 3E0P7VZ Introduction of Hormone into Female Reproductive, Via Natural or Artificial Opening (ICD-10-PCS; 2020-06-22)
PROC: 3E0R3BZ Introduction of Anesthetic Agent into Spinal Canal, Percutaneous Approach (ICD-10-PCS; 2020-06-22)
PROC: 00HU33Z Insertion of Infusion Device into Spinal Canal, Percutaneous Approach (ICD-10-PCS; 2020-06-22)
DX: O69.81X0 Labor and delivery complicated by cord around neck, without compression, not applicable or unspecified (principal); Z37.0 Single live birth; Z3A.39 39 weeks gestation of pregnancy; O76 Abnormality in fetal heart rate and rhythm complicating labor and delivery; Z20.822 Contact with and (suspected) exposure to COVID-19
CPT/HCPCS: 01967; 36415; 59025; 59409; 85014; 85018; 85027; 86592; 86850; 86900; 86901; A9270-GY; J0595; J1200; J2210; J2590; J2795; J3010; J7120; U0002

== ENCOUNTER 2021-03-09 17:16 | Emergency (ER) | payer MEDICAID ==
[2021-03-09] MEDS ORDERED: Sodium Chloride 0.9% 1,000 ML IV ONE (17:57)
[2021-03-09] MEDS ORDERED: Alum Hydrox/Mag Hydrox/Simeth 15 ML, Lidocaine 2% 5 ML PO ONE ×2 (17:57)
[2021-03-09] MEDS ORDERED: Famotidine 20 MG/2 ML SDV IVPUSH ONE (17:57)
[2021-03-09] MEDS ORDERED: Ondansetron 4 MG/2 ML SDV IVPUSH ONE (17:57)
--- NOTE | 2021-03-09 18:01 | EDM.PDOC ---
<Colin Amos - Last Filed: 03/09/21 18:50> ED HPI GENERAL MEDICAL PROBLEM - General Chief Complaint: General Stated Complaint: MUSCLE ACHES, ABDOMINAL PAIN Time Seen by Provider: 03/09/21 17:19 Source of Information: Reports: Patient History Limitations: Reports: No Limitations - History of Present Illness INITIAL COMMENTS - FREE TEXT/NARRATIVE: 31-year-old female presents for nausea, vomiting, body aches. Patient notes that she does not tolerate alcohol very well. On she did drink a large amount of alcohol. Afterwards she developed multiple episodes of emesis and a feeling of nausea. This is developed over the last couple of days into a diffuse abdominal pain associated with a burning sensation radiating up her chest. She denies any cough or shortness of breath. Over the last day she has developed diffuse muscle aches. No known Covid exposure. Generalized Pain Score (Numeric/FACES): 10 - Related Data Allergies Allergy/AdvReac Type Severity Reaction Status Date / Time nalbuphine [From Nubain] Allergy Itching Verified 03/09/21 17:45 Home Meds: Home Meds Omeprazole Magnesium [Prilosec Otc] 20 mg PO DAILY #20 tablet.dr 03/09/21 [Rx] Ondansetron [Zofran ODT] 4 mg PO Q6H PRN #12 tab.dis 03/09/21 [Rx] Past Medical History - Past Health History Medical/Surgical History: Denies Medical/Surgical History HEENT History: Reports: None Cardiovascular History: Reports: None Respiratory History: Reports: None Gastrointestinal History: Reports: GERD Genitourinary History: Reports: None 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: Reports: , 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) Other 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: 06/2009 Musculoskeletal History: Reports: None Neurological History: Reports: None Psychiatric History: Reports: None Endocrine/Metabolic History: Reports: None Hematologic History: Reports: None Immunologic History: Reports: None Oncologic (Cancer) History: Reports: None Dermatologic History: Reports: Condyloma - Infectious Disease History Infectious Disease History: Reports: Chicken Pox - Past Surgical History HEENT Surgical History: Reports: None Cardiovascular Surgical History: Reports: None GI Surgical History: Reports: None Female Surgical History: Reports: None Endocrine Surgical History: Reports: None Neurological Surgical History: Reports: None Musculoskeletal Surgical History: Reports: None Oncologic Surgical History: Reports: None Dermatological Surgical History: Reports: None Social & Family History - Family History Family Medical History: No Pertinent Family History - Tobacco Use Tobacco Use Status *Q: Never Tobacco User - Caffeine Use Caffeine Use: Reports: Coffee - Recreational Drug Use Recreational Drug Use: No - Sexual History Sexual History: Reports: None ED ROS GENERAL - Review of Systems Review Of Systems: Comprehensive ROS is negative, except as noted in HPI. ED EXAM, GENERAL - Physical Exam Exam: See Below Exam Limited By: No Limitations General Appearance: Alert, WD/WN, No Apparent Distress Ears: Hearing Grossly Normal Throat/Mouth: Normal Voice, No Airway Compromise Head: Atraumatic, Normocephalic Respiratory/Chest: No Respiratory Distress, Lungs Clear, Normal Breath Sounds, No Accessory Muscle Use Cardiovascular: Normal Peripheral Pulses, Tachycardia GI/Abdominal: Soft, Other (mid-epigatric subjective TTP w/o guarding) Extremities: Normal Inspection Neurological: Alert, Normal Cognition, Normal Gait Psychiatric: Normal Affect, Normal Mood Course - Re-Assessments/Exams Free Text/Narrative Re-Assessment/Exam: 03/09/21 18:00 We will give IV fluid bolus, GI cocktail, Pepcid for symptomatic relief. Zofran. We will get basic labs. 03/09/21 18:49 Patient still with significant pain. We will trial morphine. She does have a leukocytosis. Considering the continued pain leukocytosis will get a CT scan of the abdomen pelvis. Departure - Departure Disposition: Home, Self-Care 01 Clinical Impression: Abdominal pain, Dehydration - Discharge Information Instructions: Dehydration, Adult, [id number], Abdominal Pain, Adult, [id number] Referrals: Dayna Brown PA [Primary Care Provider] - Forms: ED Department Discharge Additional Instructions: You were seen and evaluated in the ER today secondary to abdominal pain of unclear etiology. The work-up in the emergency department was essentially normal with normal labs and normal CT scan of your abdomen pelvis. Please make an appointment to see your family doctor in the next 2 to 3 days for reevaluation if your symptoms should persist. Please return to the ER if you develop any new or concerning symptoms. You will be discharged home with a prescription for Zofran help with nausea as well as instructions to take Prilosec 20 mg daily for the next 2 weeks. The following information is given to patients seen in the emergency department who are being discharged to home. This information is to outline your options for follow-up care. We provide all patients seen in our emergency department with a follow-up referral. The need for follow-up, as well as the timing and circumstances, are variable depending upon the specifics of your emergency department visit. If you don't have a primary care physician on staff, we will provide you with a referral. We always advise you to contact your personal physician following an emergency department visit to inform them of the circumstance of the visit and for follow-up with them and/or the need for any referrals to a consulting specialist. The emergency department will also refer you to a specialist when appropriate. This referral assures that you have the opportunity for follow-up care with a specialist. All of these measure are taken in an effort to provide you with optimal care, which includes your follow-up. Under all circumstances we always encourage you to contact your private physician who remains a resource for coordinating your care. When calling for follow-up care, please make the office aware that this follow-up is from your recent emergency room visit. If for any reason you are refused follow-up, please contact the [facility] Emergency Department at and asked to speak to the emergency department charge nurse. [facility] - Primary Care [address] [place] [address] [address] Sepsis Event Note (ED) - Evaluation Sepsis Screening Result: No Definite Risk <Sergio Hsu - Last Filed: 03/09/21 20:45> ED HPI GENERAL MEDICAL PROBLEM - History of Present Illness INITIAL COMMENTS - FREE TEXT/NARRATIVE: HISTORY AND PHYSICAL: History of present illness: This is a 31-year-old female who presents ER today secondary to complaining of pain and discomfort in her mid epigastric area and having episodes of nausea and vomiting. Patient denies any recent fevers, shakes, chills. Patient denies any diarrhea, dysuria, frequency, urgency. Patient reports that he feels like a burning sensation is radiating up to her chest. Patient reports that she did have episodes of drinking alcohol heavily the day before that her symptoms began on . Review of systems: As per history of present illness and below otherwise all systems reviewed and negative. Past medical history: As per history of present illness and as reviewed below otherwise noncontributory. Surgical history: As per history of present illness and as reviewed below otherwise noncontributory. Social history: No reported history of drug abuse. Family history: As per history of present illness and as reviewed below otherwise noncontributory. Physical exam: This patient was seen and evaluated during the 2019 SARS-CoV-2 novel coronavirus pandemic period. Community viral transmission is ongoing at time of this encounter and the emergency department is operating under pandemic response procedures. Constitutional: Patient is oriented to person, place, and time. Appears well- developed and well-nourished. No distress. HEENT: Moist mucous membranes Head: Normocephalic and atraumatic Eyes: Right eye exhibits no discharge. Left eye exhibits no discharge. No scleral icterus Neck: Normal range of motion. No tracheal deviation present. Cardiovascular: Normal rate and regular rhythm. Pulmonary: Effort normal, no respiratory distress. Abd: Soft, nondistended, no rebound/guarding, no psoas or obturator signs, no tenderness at Mcberney's point, no Herbert's sign. Pt does not present with an exam that would be consistent with an acute surgical abdomen at this time. Mild tenderness palpation midepigastric region. Musculoskeletal: Normal range of motion Neurologic: Alert and oriented to person, place and time. Skin: [place], warm and dry. Psychiatric: Normal mood and affect. Behavior is normal. Judgment and thought content normal. Nursing note and vital signs have been reviewed Diagnostics: [] Therapeutics: Patient required treatment with intravenous normal saline solution secondary to clinical evidence of dehydration as manifested by history and physical examination. Assessment and plan: 31-year-old female who presents ER today complaining of abdominal pain of unclear etiology. Patient's labs were essentially unremarkable except for slightly elevated WBC count. Patient CT scan of her abdomen pelvis did not reveal any significant abnormalities or cause for her abdominal discomfort. Patient has been given medications here in the ED and reports she did not get any significant improvement from it. Patient be discharged home with a prescription for Zofran as well as Prilosec to help her with her symptoms in case this is early gastritis. I have instructed the patient to follow-up with her primary care physician this week for reevaluation and appropriate referrals. At this time, it does not appear that the patient has any further acute emergent issues that will require inpatient or further ER evaluation. Patient has been able tolerate p.o. solids and liquids here in the ED. I have discussed with her to minimize her oral intake to clear liquids and a bland diet for the next 2 to 3 days. Reassessment at the time of disposition demonstrates that the patient is in no acute distress. The patient has remained stable throughout the entire ED visit and is without objective evidence for acute process requiring urgent intervention or hospitalization. The patient is stable for discharge, counseling is provided as documented above, discussed symptomatic treatment and specific conditions for return. I have spoken with the patient/caregiver and discussed todays findings, in addition to providing specific details for the plan of care. Questions are answered and there is agreement with the plan. Definitive disposition and diagnosis as appropriate pending reevaluation and review of above. ED ROS GENERAL - Review of Systems Review Of Systems: See Below ED EXAM, GENERAL - Physical Exam Exam: See Below Course - Vital Signs Last Recorded V/S: Last Vital Signs Temp 97 F 03/09/21 17:41 Pulse 115 H 03/09/21 17:41 Resp 16 03/09/21 17:41 BP 135/92 H 03/09/21 17:41 Pulse Ox - Orders/Labs/Meds Orders: Active Orders 24 hr Category Date Time Status Saline Lock Insert [OM.PC] Stat Oth 03/09/21 17:57 Ordered Labs: Laboratory Tests 03/09/21 03/09/21 03/09/21 Range/Units 18:12 18:12 18:12 WBC 12.02 H (4.0-11.0) K/uL RBC 5.65 (4.30-5.90) M/uL Hgb 15.9 (12.0-16.0) g/dL Hct 45.3 (36.0-46.0) % MCV 80.2 (80.0-98.0) fL MCH 28.1 (27.0-32.0) pg MCHC 35.1 (31.0-37.0) g/dL RDW Std Deviation 44.7 (28.0-62.0) fl RDW Coeff of Monty 15 (11.0-15.0) % Plt Count 417 H (150-400) K/uL MPV 9.70 (7.40-12.00) fL Neut % (Auto) 66.6 (48.0-80.0) % Lymph % (Auto) 24.0 (16.0-40.0) % [place] % (Auto) 9.0 (0.0-15.0) % Eos % (Auto) 0.2 (0.0-7.0) % Baso % (Auto) 0.2 (0.0-1.5) % Neut # (Auto) 8.0 H (1.4-5.7) K/uL Lymph # (Auto) 2.9 H (0.6-2.4) K/uL [place] # (Auto) 1.1 H (0.0-0.8) K/uL Eos # (Auto) 0.0 (0.0-0.7) K/uL Baso # (Auto) 0.0 (0.0-0.1) K/uL Nucleated RBC % 0.0 /100WBC Nucleated RBCs # 0 K/uL Sodium 142 (136-145) mmol/L Potassium 3.1 L (3.5-5.1) mmol/L Chloride 99 (98-107) mmol/L Carbon Dioxide 32.2 H (21.0-32.0) mmol/L BUN 14 (7.0-18.0) mg/dL Creatinine 0.8 (0.6-1.0) mg/dL Est Cr Clr Drug Dosing 96.26 mL/min Estimated GFR (MDRD) > 60.0 ml/min Glucose 126 H (74-106) mg/dL Lactic Acid (0.4-2.0) mmol/L Calcium 9.8 (8.5-10.1) mg/dL Magnesium 2.3 (1.8-2.4) mg/dL Total Bilirubin 1.1 H (0.2-1.0) mg/dL AST 16 (15-37) IU/L ALT 21 (14-63) IU/L Alkaline Phosphatase 77 (46-116) U/L Total Protein 9.0 H (6.4-8.2) g/dL Albumin 4.3 (3.4-5.0) g/dL Globulin 4.7 H (2.6-4.0) g/dL Albumin/Globulin Ratio 0.9 (0.9-1.6) Lipase 45 L (73-393) U/L HCG, Qual NEGATIVE (NEG) SARS-CoV-2 RNA (HEIDE) (NEGATIVE) 03/09/21 03/09/21 Range/Units 18:12 18:46 WBC (4.0-11.0) K/uL RBC (4.30-5.90) M/uL Hgb (12.0-16.0) g/dL Hct (36.0-46.0) % MCV (80.0-98.0) fL MCH (27.0-32.0) pg MCHC (31.0-37.0) g/dL RDW Std Deviation (28.0-62.0) fl RDW Coeff of Monty (11.0-15.0) % Plt Count (150-400) K/uL MPV (7.40-12.00) fL Neut % (Auto) (48.0-80.0) % Lymph % (Auto) (16.0-40.0) % [place] % (Auto) (0.0-15.0) % Eos % (Auto) (0.0-7.0) % Baso % (Auto) (0.0-1.5) % Neut # (Auto) (1.4-5.7) K/uL Lymph # (Auto) (0.6-2.4) K/uL [place] # (Auto) (0.0-0.8) K/uL Eos # (Auto) (0.0-0.7) K/uL Baso # (Auto) (0.0-0.1) K/uL Nucleated RBC % /100WBC Nucleated RBCs # K/uL Sodium (136-145) mmol/L Potassium (3.5-5.1) mmol/L Chloride (98-107) mmol/L Carbon Dioxide (21.0-32.0) mmol/L BUN (7.0-18.0) mg/dL Creatinine (0.6-1.0) mg/dL Est Cr Clr Drug Dosing mL/min Estimated GFR (MDRD) ml/min Glucose (74-106) mg/dL Lactic Acid 1.4 (0.4-2.0) mmol/L Calcium (8.5-10.1) mg/dL Magnesium (1.8-2.4) mg/dL Total Bilirubin (0.2-1.0) mg/dL AST (15-37) IU/L ALT (14-63) IU/L Alkaline Phosphatase (46-116) U/L Total Protein (6.4-8.2) g/dL Albumin (3.4-5.0) g/dL Globulin (2.6-4.0) g/dL Albumin/Globulin Ratio (0.9-1.6) Lipase (73-393) U/L HCG, Qual (NEG) SARS-CoV-2 RNA (HEIDE) NEGATIVE (NEGATIVE) Meds: Medications Discontinued Medications Generic Name Dose Route Start Last Admin Trade Name Freq PRN Reason Stop Dose Admin Al Hydroxide/Mg Hydroxide 15 0 ml 03/09/21 17:57 03/09/21 18:08 ml/ Lidocaine HCl 5 ml PO 03/09/21 17:58 15 each ONETIME ONE Administration Famotidine 20 mg 03/09/21 17:57 03/09/21 18:09 Famotidine 20 Mg/2 Ml Sdv IVPUSH 03/09/21 17:58 20 mg ONETIME ONE Administration Sodium Chloride 1,000 mls @ 999 mls/hr 03/09/21 17:57 03/09/21 18:23 Normal Saline IV 03/09/21 18:57 999 mls/hr .Bolus ONE Administration Iopamidol 100 ml 03/09/21 19:43 03/09/21 20:10 Iopamidol 755 Mg/Ml 100 Ml Bottle IVPUSH 03/09/21 19:44 100 ml ONETIME ONE Administration Morphine Sulfate 4 mg 03/09/21 18:47 03/09/21 19:31 Morphine 4 Mg/Ml Vial IVPUSH 03/09/21 18:48 4 mg ONETIME ONE Administration Morphine Sulfate 4 mg 03/09/21 19:25 03/09/21 19:33 Morphine 2 Mg/Ml Syringe IVPUSH 03/09/21 19:26 Not Given ONETIME ONE Ondansetron HCl 4 mg 03/09/21 17:57 03/09/21 18:09 Ondansetron 4 Mg/2 Ml Sdv IVPUSH 03/09/21 17:58 4 mg ONETIME ONE Administration Departure - Departure Time of Disposition: 20:43 Condition: Good Sepsis Event Note (ED) - Focused Exam Vital Signs: Vital Signs Temp Pulse Resp BP 03/09/21 17:41 97 F 115 H 16 135/92 H
[2021-03-09] MEDS ORDERED: Morphine 4 MG/ML VIAL IVPUSH ONE (18:47)
[2021-03-09 19:02] LABS: BLOOD UREA NITROGEN,BUN 14 mg/dL (7.0-18.0); CARBON DIOXIDE,CO2 32.2 mmol/L (21.0-32.0); CHLORIDE,CL 99 mmol/L (98-107); GLUCOSE RANDOM 126 mg/dL (74-106); LIPASE 45 U/L (73-393); POTASSIUM,K 3.1 mmol/L (3.5-5.1); SODIUM,NA 142 mmol/L (136-145)
[2021-03-09] MEDS ORDERED: Morphine 2 MG/ML SYRINGE IVPUSH ONE (19:25)
[2021-03-09] MEDS ORDERED: Iopamidol 755 Mg/ML 100 ML Bottle IVPUSH ONE (19:43)
--- NOTE | 2021-03-09 20:32 | CT ---
Indication: Abdominal pain Technique: Postcontrast CT abdomen and pelvis. 100 cc Isovue 370 intravenous contrast. Positive oral contrast. Please note that all CT scans at this facility use dose modulation, iterative reconstruction, and/or weight-based dosing when appropriate to reduce radiation dose to as low as reasonably achievable. Comparison: None Findings: The appendix is normal. Lung bases clear. Mild fatty infiltration liver. Pancreas normal. Normal spleen. Normal adrenal glands. Kidneys unremarkable with the exception of a subcentimeter right renal cyst. No adenopathy. Gallbladder normal. No bowel obstruction or free air. No excess pelvic free fluid. Normal ovaries. Uterus normal. Tampon in the vagina. Bladder normal. Osseous structures normal for age. Impression: Unremarkable CT of the abdomen and pelvis. Please note that all CT scans at this facility use dose modulation, iterative reconstruction, and/or weight-based dosing when appropriate to reduce radiation dose to as low as reasonably achievable. Dictated by Dick Gonzales MD @ 03/09/2021 8:30:51 PM (Electronically Signed)
== END 2021-03-09 21:00 | disposition home or self-care (01) ==
LOC: MW.ED 17:16
DX: E86.0 Dehydration (principal); R10.13 Epigastric pain; Z20.822 Contact with and (suspected) exposure to COVID-19; K21.9 Gastro-esophageal reflux disease without esophagitis; Z88.8 Allergy status to other drugs, medicaments and biological substances; Z79.899 Other long term (current) drug therapy
CPT/HCPCS: 36415; 74177; 80053; 83605; 83690; 83735; 84703; 85025; 87635; 96374; 96375; 99284; A9270; J2270; J2405; J3490; J7030; Q9967; U0002

== ENCOUNTER 2021-06-06 09:15 | Emergency (ER) | payer MEDICAID ==
[2021-06-06] MEDS ORDERED: Sodium Chloride 0.9% 2.5 ML Syringe FLUSH PRN (09:38)
[2021-06-06] MEDS ORDERED: Ondansetron 4 MG/2 ML SDV IVPUSH ONE ×2 (09:38→10:23)
[2021-06-06] MEDS ORDERED: Sodium Chloride 0.9% 1,000 ML IV ONE ×2 (09:38→11:40)
[2021-06-06] MEDS ORDERED: Sodium Chloride 0.9% 10 ML Syringe FLUSH PRN (09:38)
[2021-06-06] MEDS ORDERED: Alum Hydro/Mag Hydro/Simeth XS 15 ML, Lidocaine 2% 5 ML PO ONE ×2 (09:39)
[2021-06-06] MEDS ORDERED: Pantoprazole 40 MG in Sodium Chloride 0.9% 10 ML IVPUSH SCH (09:45)
[2021-06-06 10:02] LABS: BLOOD UREA NITROGEN,BUN 14 mg/dL (7.0-18.0); CARBON DIOXIDE,CO2 26.4 mmol/L (21.0-32.0); CHLORIDE,CL 100 mmol/L (98-107); GLUCOSE RANDOM 123 mg/dL (74-106); LIPASE 35 U/L (73-393); SODIUM,NA 140 mmol/L (136-145)
[2021-06-06] MEDS ORDERED: Dicyclomine 10 MG Cap PO ONE (10:23)
[2021-06-06] MEDS ORDERED: Ketorolac 30 MG/ML SDV IVPUSH ONE (10:24)
== END 2021-06-06 13:25 | disposition home or self-care (01) ==
LOC: MW.ED 09:15
DX: R10.13 Epigastric pain (principal); R10.12 Left upper quadrant pain; E73.9 Lactose intolerance, unspecified; I10 Essential (primary) hypertension; E11.9 Type 2 diabetes mellitus without complications; K21.9 Gastro-esophageal reflux disease without esophagitis; Z88.8 Allergy status to other drugs, medicaments and biological substances
CPT/HCPCS: 36415; 80053; 81001; 81025; 83690; 85025; 96374; 96375; 96376; 99284; A9270; C9113; J1885; J2405; J7030

== ENCOUNTER 2021-11-15 05:18 | Emergency (ER) | payer MEDICAID ==
[2021-11-15] MEDS ORDERED: Ondansetron 4 MG/2 ML SDV IVPUSH ONE (05:45)
[2021-11-15] MEDS ORDERED: Pantoprazole 40 MG in Sodium Chloride 0.9% 10 ML IVPUSH STA (05:55)
[2021-11-15] MEDS ORDERED: Sodium Chloride 0.9% 1,000 ML IV SCH (06:00)
[2021-11-15 06:19] LABS: CARBON DIOXIDE,CO2 28.1 mmol/L (21.0-32.0); POTASSIUM,K 3.4 mmol/L (3.5-5.1)
[2021-11-15] MEDS ORDERED: Alum Hydro/Mag Hydro/Simeth XS 15 ML, Metoclopramide 5 MG, Lidocaine 2% 5 ML PO ONE ×3 (06:32)
== END 2021-11-15 08:25 | disposition home or self-care (01) ==
LOC: MW.ED 05:18
DX: K29.70 Gastritis, unspecified, without bleeding (principal); K21.9 Gastro-esophageal reflux disease without esophagitis; Z88.8 Allergy status to other drugs, medicaments and biological substances; Z79.899 Other long term (current) drug therapy
CPT/HCPCS: 36415; 80053; 84703; 85025; 96361; 96374; 96375; 99284; A9270; C9113; J2405; J3490; J7030; 99283

== ENCOUNTER 2023-02-14 13:16 | Emergency (ER) | payer MEDICAID | END 2023-02-14 16:35 | disposition home or self-care (01) | LOC: MW.ED 13:16 | DX: S93.601A Unspecified sprain of right foot, initial encounter (principal); S93.402A Sprain of unspecified ligament of left ankle, initial encounter; K21.9 Gastro-esophageal reflux disease without esophagitis; Z79.899 Other long term (current) drug therapy; Z88.8 Allergy status to other drugs, medicaments and biological substances; W10.9XXA Fall (on) (from) unspecified stairs and steps, initial encounter; Y93.66 Activity, soccer | CPT/HCPCS: 73610-26-LT; 73610-LT; 73630-26-RT; 73630-RT; 99283 ==

== ENCOUNTER 2025-02-02 22:31 | Emergency (ER) | payer SELFPAY ==
[2025-02-02 23:24] LABS: BASOPHILS ABSOLUTE AUTO 0.03 K/uL (0.00-0.20); BASOPHILS PERCENT AUTO 0.3 % (0.0-1.0); EOSINOPHILS ABSOLUTE AUTO 0.00 K/uL (0.00-0.45); EOSINOPHILS PERCENT AUTO 0.0 % (0.0-6.0); IMMATURE GRAN ABSOLUTE AUTO 0.04 K/uL (0.00-0.05); IMMATURE GRAN PERCENT AUTO 0.4 % (0.0-0.4); LYMPHOCYTES ABSOLUTE AUTO 2.66 K/uL (1.00-4.80); LYMPHOCYTES PERCENT AUTO 25.9 % (24.0-44.0); MEAN PLATELET VOLUME 9.3 fL (9.4-12.3); MONOCYTES ABSOLUTE AUTO 0.66 K/uL (0.00-0.80); MONOCYTES PERCENT AUTO 6.4 % (0.0-8.0); NEUTROPHILS ABSOLUTE AUTO 6.90 K/uL (1.80-7.70); NEUTROPHILS PERCENT AUTO 67.0 % (41.0-71.0); NRBC ABSOLUTE 0.00 K/uL (0.00-0.02); NRBC PERCENT 0.0 /100WBC (0.0-0.2); PLATELET COUNT,PLT 339 K/uL (150-400); RED BLOOD CELL COUNT 5.77 M/uL (4.10-5.30); WHITE BLOOD CELL COUNT,WBC 10.29 K/uL (3.9-11.3)
[2025-02-02] MEDS: Ondansetron 4 MG/2 ML SDV IVPUSH ONE (23:24)
[2025-02-02 23:40] LABS: A/G RATIO 1.0 (0.9-1.6); ALANINE AMINOTRANSFERASE,ALT 18.0 IU/L (14-63); ASPARTATE AMNIOTRANSFERASE,AST 24.0 IU/L (15-37); BILIRUBIN TOTAL 0.9 mg/dL (0.2-1.0); BLOOD UREA NITROGEN,BUN 13.0 mg/dL (7.0-18.0); CARBON DIOXIDE,CO2 31.8 mmol/L (21.0-32.0); CHLORIDE,CL 96.0 mmol/L (98-107); CREATININE 1.0 mg/dL (0.6-1.0); EST CRCL DRUG DOSING (CG) 74.91 mL/min; GLUCOSE RANDOM 118.0 mg/dL (74-106); POTASSIUM,K 3.1 mmol/L (3.5-5.1); PROTEIN TOTAL,TP 8.6 g/dL (6.4-8.2); SODIUM,NA 137.0 mmol/L (136-145)
[2025-02-02 23:41] LABS: ESTIMATED GFR 76.0 mL/min (>60)
[2025-02-03] MEDS: Potassium Chloride 20 MEQ Tab.ER PO ONE (00:43)
[2025-02-03 00:46] LABS: GLUCOSE,URINE NEGATIVE (NEGATIVE); OCCULT BLOOD,URINE TRACE-LYSED (NEGATIVE)
[2025-02-03 00:49] LABS: APPEARANCE,URINE HAZY
[2025-02-03 00:54] LABS: EPITHELIAL CELLS,URINE RARE (NONE-FEW); YEAST,URINE MODERATE
[2025-02-03 00:56] LABS: AMPHETAMINES SCREEN, URINE NEGATIVE (CUTOFF=500); BUPRENORPHINE SCREEN,URINE NEGATIVE (CUTOFF=10); METHADONE SCREEN, URINE NEGATIVE (CUTOFF=200); METHAMPHETAMINES SCREEN, URINE NEGATIVE (CUTOFF=500); OXYCODONE SCREEN,URINE NEGATIVE (CUT0FF=100); PCP SCREEN,URINE NEGATIVE (CUTOFF=25); THC SCREEN,URINE 20 NG/ML PRESUMPTIVE POSITIVE (CUTOFF=50)
== END 2025-02-03 02:15 | disposition home or self-care (01) ==
LOC: MW.ED 22:31
DX: R11.2 Nausea with vomiting, unspecified (principal); R10.31 Right lower quadrant pain; R10.32 Left lower quadrant pain; E86.0 Dehydration; Z88.8 Allergy status to other drugs, medicaments and biological substances
CPT/HCPCS: 36415; 80053; 80305; 81001; 83690; 83735; 84703; 85025; 87086; 96361; 96374; 99284; A9270; J2405; J7030; J7040; 99283